=== PATIENT | male | born 1955 | race Two or more races ===

== ENCOUNTER → 2017-04-26 | Outpatient (CLI) | payer MEDICARE, OTHER ==
[~2017-04-26] MED LIST: ASPI-757 PO; CLOP75TA43 PO; CYAN250013 PO; MULT-865 PO; VIT B 12 PO
[2017-04-26 09:01] LABS: PLATELET COUNT, AUTOMATED 267 K/uL (150-450)
[2017-04-26 09:32] LABS: LDL CHOLESTEROL 54 mg/dl
== END ==
LOC: LAB 08:42
PROVIDERS: ATTEND Internal Medicine
DX: R79.9 Abnormal finding of blood chemistry, unspecified (principal); R63.4 Abnormal weight loss; Z85.028 Personal history of other malignant neoplasm of stomach
CPT/HCPCS: 36415; 81001; 82040; 82247; 82310; 82374; 82435; 82465; 82565; 82607; 82746; 82947; 83718; 84075; 84132; 84155; 84295; 84443; 84450; 84460; 84478; 84520; 85025

== ENCOUNTER → 2018-04-01 | Outpatient (CLI) | payer MEDICARE, OTHER ==
[2018-04-01 09:59] LABS: PLATELET COUNT, AUTOMATED 293 K/uL (150-450)
[2018-04-01 10:14] LABS: LDL CHOLESTEROL 59 mg/dl
== END ==
LOC: LAB 09:16
PROVIDERS: ATTEND Internal Medicine
DX: I69.398 Other sequelae of cerebral infarction (principal); Z85.028 Personal history of other malignant neoplasm of stomach; E53.8 Deficiency of other specified B group vitamins
CPT/HCPCS: 36415; 81001; 82607; 84443; 85025; G0103; 82040; 82247; 82310; 82374; 82435; 82465; 82565; 82947; 83718; 84075; 84132; 84153; 84155; 84295; 84450; 84460; 84478; 84520

== ENCOUNTER → 2018-04-08 | Outpatient (CLI) | payer MEDICARE, OTHER ==
[~2018-04-08] MED LIST changes: +TAMS0.4C70 PO
== END ==
LOC: LAB 10:15
PROVIDERS: ATTEND Urology
DX: R97.20 Elevated prostate specific antigen [PSA] (principal)
CPT/HCPCS: 36415; 84154

== ENCOUNTER 2018-06-08 19:14 | Emergency (ER) | payer MEDICARE, OTHER ==
--- NOTE | 2018-06-08 19:22 | ER Report ---
History and Physical Time Seen By : 19:22 HPI/ROS CHIEF COMPLAINT: Hypoglycemia HISTORY OF PRESENT ILLNESS: This is a 62-year-old male who presents to emergency department with his family for a hypoglycemic event. About an hour prior to arrival, the patient and his family were sitting at the dinner table, he began to not respond appropriately, they called EMS, the checked his blood sugar was noted be 33, gave him some Sprite, came up into the 70s, was instructed to come to the ER for further evaluation. Patient is acting appropriate at this time, ambulating well, states he feels fine, he states that he was unsure what was going on, all of a sudden these "people showed up". No recent illnesses no chest pain or shortness breath. REVIEW OF SYSTEMS: Constitutional: No fever, no chills. Eyes: No discharge. ENT: No sore throat. Cardiovascular: No chest pain, no palpitations. Respiratory: No cough, no shortness of breath. Gastrointestinal: No abdominal pain, no vomiting. Genitourinary: No hematuria. Musculoskeletal: No back pain. Skin: No rashes. Neurological: As above. Allergies: Coded Allergies: No Known Drug Allergies (Verified , 08/28/11) Home Meds Active Scripts Tamsulosin Hcl (TAMSULOSIN HCL) 0.4 Mg Cap.er.24h, 0.4 MG PO HS, #90 CAP 3 Refills Prov:DARIUSZ BEST MD 04/04/18 Clopidogrel Bisulfate (PLAVIX) 75 Mg Tablet, 1 TAB PO QDAY, #90 TAB 4 Refills Prov:DARIUSZ BEST MD 04/04/18 Reported Medications Multivitamin (DAILY MULTIPLE VITAMIN) 1 Each Tablet, 1 TAB PO DAILY 08/22/16 Cyanocobalamin (Vitamin B-12) (Vitamin B12) Unknown Strength Tab.chew, 1000 MG PO QDAY, #1 TAB 08/22/16 Aspirin (ASPIRIN) 325 Mg Tablet, 325 MG PO DAILY, TAB 08/22/16 Past Medical/Surgical History The patient has a past medical and surgical history of CVA, currently taking Plavix and aspirin, stomach, esophageal cancer, multiple surgeries, splenectomy, GERD, right tib-fib fracture, visual problems secondary to stroke, stomach cancer, radiation. Reviewed Nurses Notes: Yes Hx Smoking: No Smoking Status: Never Smoker Constitutional Vital Sign - Last 24 Hours 06/08/18 06/08/18 06/08/18 06/08/18 19:20 19:20 19:30 19:44 Temp 98.2 Pulse 100 103 Resp 18 B/P (MAP) 131/76 131/76 (94) 115/74 (88) Pulse Ox 96 90 O2 Delivery Room Air Physical Exam General Appearance: The patient is alert, has no immediate need for airway protection and no signs of toxicity. Eyes: Pupils equal and round no pallor or injection. EOMs intact. ENT, Mouth: Mucous membranes are moist. Respiratory: There are no retractions, lungs are clear to auscultation. Cardiovascular: Regular rate and rhythm. Gastrointestinal: Abdomen is soft and non tender, no masses, bowel sounds normal. Neurological: Alert and oriented 4. Moving all extremities. Following all commands. No focal neuro deficits. Skin: Warm and dry, no rashes. Musculoskeletal: Neck is supple non tender. Extremities are nontender, nonswollen and have full range of motion. DIFFERENTIAL DIAGNOSIS: After history and physical exam differential diagnosis was considered for hypoglycemia, TIA, CVA. Medical Decision Making Data Points Result Diagram: 06/08/18195806/08/181958 Laboratory Hematology Test 06/08/18 19:59 Red Blood Count 4.55 M/uL (4.00-5.60) Mean Corpuscular Volume 96.4 fL (80.0-96.0) Mean Corpuscular Hemoglobin 31.9 pg (26.0-33.0) Mean Corpuscular Hemoglobin Concent 33.1 g/dL (32.0-36.0) Red Cell Distribution Width 13.1 % (11.5-14.5) Mean Platelet Volume 7.9 fL (7.2-11.1) Neutrophils (%) (Auto) 65.2 % (39.4-72.5) Lymphocytes (%) (Auto) 19.9 % (17.6-49.6) Monocytes (%) (Auto) 10.7 % (4.1-12.4) Eosinophils (%) (Auto) 3.2 % (0.4-6.7) Basophils (%) (Auto) 1.0 % (0.3-1.4) Nucleated RBC Relative Count (auto) 0.0 /100WBC Neutrophils # (Auto) 4.3 K/uL (2.0-7.4) Lymphocytes # (Auto) 1.3 K/uL (1.3-3.6) Monocytes # (Auto) 0.7 K/uL (0.3-1.0) Eosinophils # (Auto) 0.2 K/uL (0.0-0.5) Basophils # (Auto) 0.1 K/uL (0.0-0.1) Nucleated RBC Absolute Count (auto) 0.00 K/uL Sodium Level 139 mmol/L (137-145) Potassium Level 3.4 mmol/L (3.5-5.0) Chloride Level 109 mmol/L (98-107) Carbon Dioxide Level 21 mmol/L (22-30) Blood Urea Nitrogen 14 mg/dl (9-21) Creatinine 0.90 mg/dl (0.66-1.25) Glomerular Filtration Rate Calc > 60.0 Random Glucose 85 mg/dl (75-110) Calcium Level 8.9 mg/dl (8.4-10.2) Total Bilirubin < 0.1 mg/dl (0.2-1.3) Aspartate Amino Transf (AST/SGOT) 26 U/L (0-35) Alanine Aminotransferase (ALT/SGPT) 19 U/L (0-56) Alkaline Phosphatase 98 U/L (0-126) Total Protein 7.0 g/dl (6.3-8.2) Albumin 4.0 g/dl (3.5-5.0) Chemistry Test 06/08/18 19:59 White Blood Count 6.6 k/uL (4.5-11.0) Red Blood Count 4.55 M/uL (4.00-5.60) Hemoglobin 14.5 g/dL (14.0-18.0) Hematocrit 43.9 % (42.0-52.0) Mean Corpuscular Volume 96.4 fL (80.0-96.0) Mean Corpuscular Hemoglobin 31.9 pg (26.0-33.0) Mean Corpuscular Hemoglobin Concent 33.1 g/dL (32.0-36.0) Red Cell Distribution Width 13.1 % (11.5-14.5) Platelet Count 329 K/uL (150-450) Mean Platelet Volume 7.9 fL (7.2-11.1) Neutrophils (%) (Auto) 65.2 % (39.4-72.5) Lymphocytes (%) (Auto) 19.9 % (17.6-49.6) Monocytes (%) (Auto) 10.7 % (4.1-12.4) Eosinophils (%) (Auto) 3.2 % (0.4-6.7) Basophils (%) (Auto) 1.0 % (0.3-1.4) Nucleated RBC Relative Count (auto) 0.0 /100WBC Neutrophils # (Auto) 4.3 K/uL (2.0-7.4) Lymphocytes # (Auto) 1.3 K/uL (1.3-3.6) Monocytes # (Auto) 0.7 K/uL (0.3-1.0) Eosinophils # (Auto) 0.2 K/uL (0.0-0.5) Basophils # (Auto) 0.1 K/uL (0.0-0.1) Nucleated RBC Absolute Count (auto) 0.00 K/uL Glomerular Filtration Rate Calc > 60.0 Calcium Level 8.9 mg/dl (8.4-10.2) Total Bilirubin < 0.1 mg/dl (0.2-1.3) Aspartate Amino Transf (AST/SGOT) 26 U/L (0-35) Alanine Aminotransferase (ALT/SGPT) 19 U/L (0-56) Alkaline Phosphatase 98 U/L (0-126) Total Protein 7.0 g/dl (6.3-8.2) Albumin 4.0 g/dl (3.5-5.0) ED Course/Re-evaluation Clinical Indication for ER IV: Hydration, IV Access ED Course Patient was admitted to room. A history and physical were obtained. Differential diagnoses were considered. An IV was started. A CBC, CMP, hemoglobin A1c and TSH were obtained. Lab studies unremarkable, normal glucose, A1c and TSH pending. Reviewed the laboratory studies with the patient, he remained stable while in the ER, no other concerns, no stroke or TIA symptoms. I didn't instruct the patient to follow-up with his primary care provider within the next 1-3 days for reevaluation. Return to ER for any concerns or worsening symptoms. The patient and his family expressed understanding and was discharged home. Decision to Disposition Date: Jun 08, 2018 Decision to Disposition Time: 21:01 Depart Departure Latest Vital Signs Vital Signs Date Time Temp Pulse Resp B/P (MAP) Pulse Ox O2 Delivery O2 Flow Rate FiO2 06/08/18 19:44 103 90 06/08/18 19:30 115/74 (88) 06/08/18 19:20 98.2 18 Room Air Impression: Primary Impression: Hypoglycemia Condition: Improved Disposition: HOME OR SELF-CARE Referrals: DARIUSZ BEST MD (PCP) 5 Days Patient Instructions: Non-diabetic Hypoglycemia (ED) Additional Instructions: There were no concerning findings on her laboratory studies tonight. Your blood sugar while in the emergency department was normal. I'm unsure as to the cause of your hypoglycemic event tonight therefore I wanted to follow-up with your primary care provider within the next 1-3 days for reevaluation. Please have a little bit of food before you go to bed tonight. Drink plenty of water. Get plenty of rest. If you have any concerns tonight and return to the emergency department immediately for reevaluation. HEIDI MICHAEL [employer] Jun 08, 2018 19:22
[2018-06-08 19:30] VITALS: BP 115/74
[2018-06-08 20:22] LABS: PLATELET COUNT, AUTOMATED 329 K/uL (150-450)
== END 2018-06-08 21:20 | disposition home or self-care (01) ==
LOC: ER 19:33
DX: E16.2 Hypoglycemia, unspecified (principal)
CPT/HCPCS: 82040; 82247; 82310; 82374; 82435; 82565; 82947; 83036; 84075; 84132; 84155; 84295; 84443; 84450; 84460; 84520; 85025; 99282

== ENCOUNTER → 2018-06-11 | Outpatient (CLI) | payer MEDICARE, OTHER | LOC: LAB 08:00 | PROVIDERS: ATTEND Internal Medicine | DX: E16.2 Hypoglycemia, unspecified (principal) | CPT/HCPCS: 36415; 82040; 82247; 82310; 82374; 82435; 82565; 82947; 83525; 84075; 84132; 84155; 84295; 84450; 84460; 84520; 84681 ==

== ENCOUNTER → 2018-07-15 | Outpatient (CLI) | payer MEDICARE, OTHER | LOC: LAB 09:34 | PROVIDERS: ATTEND Urology | DX: R97.20 Elevated prostate specific antigen [PSA] (principal) | CPT/HCPCS: 36415; 84153; 84154 ==